=== PATIENT | female | born 1950 | race Caucasian/White ===

== ENCOUNTER → 2018-04-23 | Outpatient (CLI) | payer MEDICARE, OTHER ==
--- NOTE | 2018-04-24 14:07 | MM ---
Reason for exam: screening (asymptomatic). Last mammogram was performed 1 year and 2 months ago. History: Patient is postmenopausal and has history of breast cancer at age 55. Family history of breast cancer in mother at age 63. Malignant lumpectomy of the right breast, 2005. Radiation therapy of the right breast, 2005. Retro-pectoral silicone gel implants, 1996. Took estrogen for 6 months. Physical Findings: A clinical breast exam by your physician is recommended on an annual basis and results should be correlated with mammographic findings. MG 3D Screen Mammo Imp/Cad Bilateral CC, MLO, and ID view(s) were taken. Prior study comparison: March 07, 2017, mammogram. February 18, 2017, mammogram. The breast tissue is heterogeneously dense. This may lower the sensitivity of mammography. No suspicious abnormality. No significant changes when compared with prior studies. ASSESSMENT: Negative, BI-RAD 1 RECOMMENDATION: Routine screening mammogram of both breasts in 1 year.
== END | disposition home or self-care (01) ==
LOC: RADMAMWWP 16:22
PROVIDERS: ATTEND Family Medicine
DX: Z12.31 Encounter for screening mammogram for malignant neoplasm of breast (principal); Z80.3 Family history of malignant neoplasm of breast
CPT/HCPCS: 77063; 77067

== ENCOUNTER → 2019-05-07 | Outpatient (CLI) | payer MEDICARE ==
--- NOTE | 2019-05-08 15:03 | MM ---
Reason for exam: screening (asymptomatic). Last mammogram was performed 1 year ago. History: Patient is postmenopausal and has history of breast cancer at age 55. Family history of breast cancer in mother at age 63. Malignant lumpectomy of the right breast, 2005. Radiation therapy of the right breast, 2005. Retro-pectoral silicone gel implants, 1996. Took estrogen for 6 months. Physical Findings: A clinical breast exam by your physician is recommended on an annual basis and results should be correlated with mammographic findings. MG 3D Screen Mammo Imp/Cad Bilateral CC, MLO, and ID view(s) were taken. Prior study comparison: April 23, 2018, bilateral MG 3d screen mammo imp/cad. March 07, 2017, mammogram. The breast tissue is heterogeneously dense. This may lower the sensitivity of mammography. No suspicious abnormality. Bilateral retropectoral silicone implants. No significant changes when compared with prior studies. ASSESSMENT: Negative, BI-RAD 1 RECOMMENDATION: Routine screening mammogram of both breasts in 1 year.
== END | disposition home or self-care (01) ==
LOC: RADMAMWWP 15:21
PROVIDERS: ATTEND Family Medicine
DX: Z12.31 Encounter for screening mammogram for malignant neoplasm of breast (principal); Z80.3 Family history of malignant neoplasm of breast; Z98.82 Breast implant status
CPT/HCPCS: 77063; 77067

== ENCOUNTER → 2020-06-16 | Outpatient (CLI) | payer MEDICARE ==
--- NOTE | 2020-06-17 11:14 | MM ---
Reason for exam: screening (asymptomatic). Last mammogram was performed 1 year and 1 month ago. History: Patient is postmenopausal and has history of breast cancer at age 55. Family history of breast cancer in mother at age 63. Malignant lumpectomy of the right breast, 2005. Radiation therapy of the right breast, 2005. Retro-pectoral silicone gel implants, 1996. Took estrogen for 6 months. Physical Findings: A clinical breast exam by your physician is recommended on an annual basis and results should be correlated with mammographic findings. MG 3D Screen Mammo Imp/Cad Bilateral CC, MLO, and ID view(s) were taken. Prior study comparison: May 07, 2019, bilateral MG 3d screen mammo imp/cad. April 23, 2018, bilateral MG 3d screen mammo imp/cad. There are scattered fibroglandular densities. No significant changes when compared with prior studies. ASSESSMENT: Benign, BI-RAD 2 RECOMMENDATION: Routine screening mammogram of both breasts in 1 year.
== END | disposition home or self-care (01) ==
LOC: RADMAMWWP 14:54
PROVIDERS: ATTEND Family Medicine
DX: Z12.31 Encounter for screening mammogram for malignant neoplasm of breast (principal)
CPT/HCPCS: 77063; 77067

== ENCOUNTER → 2021-07-24 | Outpatient (CLI) | payer MEDICARE ==
--- NOTE | 2021-07-26 08:10 | MM ---
Reason for exam: screening (asymptomatic). Last mammogram was performed 1 year and 1 month ago. History: Patient is postmenopausal and has history of breast cancer at age 55. Family history of breast cancer in mother at age 63. Implant in the right breast, 2009. Malignant lumpectomy of the right breast, 2005. Radiation therapy of the right breast, 2005. Retro-pectoral silicone gel implants, 1996. Took estrogen for 6 months. Physical Findings: A clinical breast exam by your physician is recommended on an annual basis and results should be correlated with mammographic findings. MG Screening Mammo Implant/CAD Bilateral CC and MLO view(s) were taken. Prior study comparison: June 16, 2020, bilateral MG 3d screen mammo imp/cad. May 07, 2019, bilateral MG 3d screen mammo imp/cad. April 23, 2018, bilateral MG 3d screen mammo imp/cad. February 18, 2017, mammogram. There are scattered fibroglandular densities. Bilateral retropectoral silicone implants. Left axillary nodule seen back on 2016. Surgical clips right axilla. No significant changes when compared with prior studies. ASSESSMENT: Benign, BI-RAD 2 RECOMMENDATION: Routine screening mammogram of both breasts in 1 year.
== END | disposition home or self-care (01) ==
LOC: RADMAMWWP 16:00
PROVIDERS: ATTEND Family Medicine
DX: Z12.31 Encounter for screening mammogram for malignant neoplasm of breast (principal)
CPT/HCPCS: 77067

== ENCOUNTER → 2023-01-17 | Outpatient (CLI) | payer MEDICARE ==
--- NOTE | 2023-01-17 10:16 | USB ---
Reason for Exam: Follow-up at short interval from prior study. Patient History: Menarche at age 15. First Full-Term at age 20. Postmenopausal. Breast cancer, age 55. Estrogen for 6 months. 2005, Malignant Lumpectomy on the right side. 2005, Radiation Therapy on the right side. 1996, Implant(s). 2009, Implant on the right side. Mother had breast cancer, age 63. Technique: Method: Targeted. Prior Study Comparison: 05/07/2019 Bilateral Screening Mammogram, [facility]. 06/16/2020 Bilateral Screening Mammogram, [facility]. 07/24/2021 Bilateral Screening Mammogram, [facility]. Findings: The axilla of the left breast was scanned. Benign-appearing axillary lymph nodes are present. No thickened cortex is evident. No suspicious spiculated or lobular masses.. Overall Assessment: Benign, BI-RAD 2 Management: Screening Mammogram of both breasts. A clinical breast exam by your physician is recommended on an annual basis and results should be correlated with mammographic findings. This exam should not preclude additional follow-up of suspicious palpable abnormalities. Results were given to the patient verbally at the time of exam. Electronically signed and approved by: Ciro Noel D.O. Radiologis
== END | disposition home or self-care (01) ==
LOC: RADUSWWP 09:48
PROVIDERS: ATTEND Family Medicine
DX: R92.8 Other abnormal and inconclusive findings on diagnostic imaging of breast (principal); Z78.0 Asymptomatic menopausal state; Z80.3 Family history of malignant neoplasm of breast

== ENCOUNTER → 2023-01-23 | Outpatient (CLI) | payer MEDICARE ==
--- NOTE | 2023-01-23 19:31 | CTL ---
EXAMINATION TYPE: CT Low Dose Lung DATE OF EXAM: 01/23/2023 5:36 PM CLINICAL INDICATION:Female, 73 years old with history of Z87.891 PERSONAL HISTORY OF NICOTINE DEPENDE NCE; personal hx of tobacco use , history of tobacco use. COMPARISON: None. TECHNIQUE: Multiple axial non-contrast scans were obtained from approximately the lung apices through the upper abdomen. Coronal and sagittal reformatted images were obtained. Low dose technique was uti lized. CT DLP: 84.9 mGycm, Automated exposure control for dose reduction was used. CT Contrast: Contrast used: None Oral contrast used: None FINDINGS: ======== Lack of intravenous contrast and low dose technique limits the evaluation of the vascular and soft ti ssue structures. LUNGS: No evidence of pulmonary fibrosis. No evidence of focal consolidation, pneumothorax or pleural effusion. Nodules: RUL: None. RML: None. RLL: None. ABIGAIL: None. LLL: None. AIRWAY: Patent and unremarkable. HEART: Size within normal limits. Atherosclerosis of the coronary arteries. Aortic valve calcificatio ns. MEDIASTINUM: No gross evidence of adenopathy. VASCULATURE: No aortic aneurysm. MUSCULOSKELETAL: No acute osseous abnormalities, pectus excavatum. Multilevel disc degeneration herman es throughout the spine. SOFT TISSUES/LYMPH NODES: There is bilateral breast implants. The left breast implant appears to have an intracapsular rupture. Surgical clips in the right axilla. LOWER NECK: No significant findings. UPPER ABDOMEN: No significant findings. IMPRESSION: 1. No clinically significant pulmonary nodules. 2. There is bilateral breast implants. The left breast implant appears to have an intracapsular rupt ure. CT LUNG RAD AND CT CHEST RECOMMENDATION: Lung-Rad 1 Negative: Continue annual screening with LDCT in 12 months. S Modifier (other clinically significant findings): None Recommend smoking cessation (if current smoker), or continuation of smoking cessation (if prior smoke r). Annual screening for lung cancer with low-dose computed tomography is recommended in adults ages 55 to 77 years who have a 30 pack-year smoking history and currently smoke or have quit within the pa st 15 years. Screening should be discontinued once a person has not smoked for 15 years or develops a health problem that substantially limits life expectancy or the ability or willingness to have curat xi lung surgery. Lung rads 2021 [email or web address]
== END | disposition home or self-care (01) ==
LOC: RADCTMAIN 17:15
PROVIDERS: ATTEND Family Medicine
DX: Z12.2 Encounter for screening for malignant neoplasm of respiratory organs (principal); F17.210 Nicotine dependence, cigarettes, uncomplicated; Z98.82 Breast implant status
CPT/HCPCS: 71271

== ENCOUNTER → 2023-07-30 | Outpatient (CLI) | payer MEDICARE ==
--- NOTE | 2023-07-31 11:06 | CA ---
Lexiscan Nuclear Stress Test Report Name: Anisha Rascon Exam Date: 07/31/2023 09:30 Exam Location: [facility] Ht (in): 63 Wt (lb): 170 BSA: 1.80 Ordering Phys: Clayton Boles DO Referring Phys: Clayton Boles DO Technologist: Juan Woods Age: 73 Gender: F : 1950 Procedure CPT: Indications: R94.31 ABNORMAL ELECTROCARDIOGRAM [ECG] [EKG] ICD-10 Codes: Patient History: DIFFICULTY IN BREATHING, HTN, ELEVATED CHOLESTEROL LEVELS, FAMILY HX OF HEART DISEASE, FORMER SMOKER, COPD Medications: METOPROLOL, HZTZ, ATORVASTATIN, IBUPROFEN Meds past 24 hrs: Pretest Chest Pain: STRESS TEST Lexiscan Protocol Exercise Duration (min:sec): 01:[address] Depressions (mm): Angina Score: Brown Score: Resting HR (bpm): 59 Peak HR (bpm): 92 Resting BP (mmHg): 164 / 99 Peak BP (mmHg): 174 / 107 MPHR: 148 Target HR: 126 % MPHR: 62 METS: 1.0 Total Dose: Peak Dose: Atropine: Double Product: 94817 BP Response: Stress Termination: INFUSION COMPLETE Stress Symptoms: DIAPHORESIS Stress Summary: ECG ANALYSIS Resting ECG: Stress ECG: CONCLUSIONS RESTING EKG: Sinus rhythm, nonspecific T-wave inversions in inferior leads and T-wave flattening in lateral leads, Heart rate 60 BPM Patient recieved IV infusion of Lexiscan 0.4mg and at peak infusion STRESS EKG showed: Exacerbation of baseline T-wave inversions in inferior lead which is not particularly diagnostic for ischemia ARRYTHMIAS: [No ectopic rhythms or sustained arrythmias] CONCLUSION: 1. Normal hemodynamic and heart response to Lexiscan infusion. 2. Non-ischemic EKG response to lexiscan infusion 3. Nuclear perfusion imaging is reported separately by the radiology team. Please refer to that report for complete interpretation of this study. Dr Saúl Wheeler (Electronically Signed) Final Date: 31 July 2023 11:05
--- NOTE | 2023-07-31 23:10 | NM ---
EXAMINATION TYPE: NM stress lexiscan cardiolite DATE OF EXAM: 07/31/2023 COMPARISON: NONE HISTORY: Presurgical clearance TECHNIQUE: After the intravenous administration of 9.5 mCi Tc 99m Sestamibi - Cardiolite resting SPE CT images acquired 55 minutes post injection. At peak stress 25.5 mCi Tc 99m Sestamibi - Stress images obtained 40 minutes post injection The patient was stressed with 0.4mg Lexiscan. FINDINGS: There is a small defect along the lateral distal left ventricular wall extending towards cardiac apex on the stress images. This area appears more normal on the resting images. Polar maps suggest revers ible perfusion defect to this region. Additionally, Polar map suggest a stress-induced ischemic herman e along the distal septal wall not as clearly evident on the SPECT imaging. Ejection fraction of 50% is normal. Normal greater than 50%. Wall motion appears within normal limits IMPRESSION: 1. Stress-induced ischemic change which appears reversible on rest along the distal lateral left vent ricular wall. 2. Borderline hypoechoic kinesia with an ejection fraction of 50%.
== END | disposition home or self-care (01) ==
LOC: RADNMMAIN 08:16
PROVIDERS: ATTEND Family Medicine
DX: Z01.818 Encounter for other preprocedural examination (principal); R94.31 Abnormal electrocardiogram [ECG] [EKG]
CPT/HCPCS: 93017; 78452; A9500

== ENCOUNTER → 2023-09-03 | Outpatient (CLI) | payer MEDICARE ==
[2023-09-03 18:11] LABS: HCT 43.4 % (37.2-46.3); HGB 14.6 g/dL (12.0-15.0); MCH 31.3 pg (27.0-32.0); MCHC 33.6 g/dL (32.0-37.0); MCV 93.1 FL (80.0-97.0); Mean Platelet Volume 9.9 FL (9.5-12.2); NRBC Per 100 WBC 0 X 10*3/uL (0.00-0.01); Platelet Count 296 X 10*3/uL (140-440); RBC 4.66 X 10*6/uL (4.10-5.20); RDW 12.3 % (11.5-14.5)
[2023-09-03 18:18] LABS: Blood Urea Nitrogen 13.2 mg/dL (9.0-27.0); Carbon Dioxide 26.8 mmol/L (21.6-31.8); Chloride 98 mmol/L (96-109); Potassium 4.7 mmol/L (3.5-5.5); Sodium 137 mmol/L (135-145)
== END | disposition home or self-care (01) ==
LOC: LABPAT 14:05
PROVIDERS: ATTEND Student in an Organized Health Care Education/Training Program
DX: Z01.812 Encounter for preprocedural laboratory examination (principal); R94.39 Abnormal result of other cardiovascular function study
CPT/HCPCS: 80051; 82565; 84520; 85027

== ENCOUNTER 2023-09-10 10:14 | Day surgery (SDC) | payer MEDICARE ==
[2023-09-05 12:17] VITALS: BMI 31.8
[~2023-09-10 10:14] MED LIST: ALPRAZolam 0.25 MG TAB PO PRN; ALPRAZolam 0.5 MG TAB PO PRN; ASPIRIN 325 MG TAB PO STA; NITROGLYCERIN SL TABS 0.4 MG TAB SUBLINGUAL PRN; SODIUM CHLORIDE 0.9% 1,000 ML in EMPTY BAG 1 BAG IV SCH
[2023-09-10] MEDS ORDERED: SODIUM CHLORIDE 0.9% 1,000 ML IV ONE (10:21)
[2023-09-10 11:03] VITALS: RESP 16; TEMP 97.7
[2023-09-10] MEDS ORDERED: VERAPAMIL 2.5 MG/ML 2 ML AMP ONE (12:30)
[2023-09-10] MEDS ORDERED: HEPARIN SODIUM 1,000 UN/ML (10ML VL) ONE (12:42)
[2023-09-10] MEDS ORDERED: fentaNYL (PF) 50 MCG/ML 2 ML AMP ONE (12:42)
[2023-09-10] MEDS ORDERED: MIDAZOLAM 2 MG/2 ML VIAL IVP ONE (12:50)
[2023-09-10] MEDS ORDERED: fentaNYL (PF) 50 MCG/ML 2 ML AMP IVP ONE (12:50)
[2023-09-10] MEDS ORDERED: LIDOCAINE 1% INJ 10MG/ML (20 ML MDV) SQ ONE (12:51)
[2023-09-10] MEDS ORDERED: VERAPAMIL 2.5 MG/ML 2 ML AMP INTRAARTER ONE (12:53)
[2023-09-10] MEDS ORDERED: HEPARIN SODIUM 1,000 UN/ML (10ML VL) IV ONE (13:06)
[2023-09-10] MEDS ORDERED: IOPAMIDOL-370 100ML BTL INJ ONE (13:18)
[2023-09-10] MEDS ORDERED: RX INFO: IV CONTRAST WAS GIVEN 1 EACH MISC MISCELLANE PRN (13:23)
[2023-09-10] MEDS ORDERED: SODIUM CHLORIDE 0.9% 1,000 ML IV SCH (13:30)
--- NOTE | 2023-09-10 13:31 | P.CARDCATH ---
Date of Procedure: 09/10/23 Description of Procedure: DIAGNOSTIC CORONARY ANGIOGRAPHY and LEFT HEART CATH REPORT PROCEDURES PERFORMED: Left heart catheterization Selective coronary angiography Moderate conscious sedation [25] mins Ultrasound assisted Right ulnar access INDICATION: Positive nuclear stress test 73-year-old female who saw me in the clinic because of worsening exercise tolerance and exertional shortness of breath. She underwent a Lexiscan nuclear stress test which showed reversible perfusion defect of dskh-xo-mkoxwasy intensity and mild to moderate size involving the anterolateral wall. For this she was scheduled for an outpatient heart catheterization. CONSENT: I have discussed the risks, benefits and alternative therapies for the above-mentioned procedure, sedation/analgesia and necessary blood product administration (if indicated, as they pertain to this patient). The patient has indicated understanding and acceptance of the risks and procedures discussed. Conscious Sedation: Patient's ECG, heart rate, blood pressure, pulse oximetry was monitored throughout the duration of procedure under my direct supervision. [1] mg Versed and [50] mg Fentanyl were used for induction of moderate conscious sedation. Total duration of moderate concious sedation [25] minutes. PROCEDURE: After explaining the risks, benefits and alternatives of the above mentioned procedures in detail to the patient, informed consent was obtained. Patient was taken to the catheterization lab, prepped and draped in usual sterile fashion using universal precuations. Barbow and ridge test were performed to confirm adequate perfusion to fingers. Ultrasound was used to identify the radial artery. Right radial artery was very small on ultrasound exam measuring around 2 mm. Therefore we decided to not proceed with right radial access. On ultrasound of her right ulnar artery was big. Ultrasound was used to localize the right ulnar artery. 1% lidocaine was infiltrated over the right radial artery. A 6-Moroccan sheath was placed and secured in the right ulnar artery using modified Seldinger technique. The sheath was flushed and 5 mg verapamil was administered intra- arterially. J tipped wire was advanced under fluoroscopic guidance. Once the wire tip reached aortic root 4800 units of IV heparin was given. Over the wire 5 Moroccan JL4 diagnostic catheter was advanced. Wire was removed, catheter was flushed and manipulated under fluoroscopy to selectively engaged the left coronary ostium. Left coronary angioplasty was performed in different angiographic projections. This catheter was exchanged for a 5 Moroccan JR4 diagnostic catheter over the wire. The catheter was flushed and manipulated to cross the aortic valve. LV pressures were obtained. Pullback was performed across aortic valve and catheter was manipulated to selectively engage the right coronary ostium under fluoroscopic guidance. Right coronary angiography was performed in different angiographic projections. Catheter was removed over the wire. Radial sheath was flushed. The right radial sheath was removed and a TR band was placed with excellent patent hemostasis was achieved. The patient tolerated the procedure well. Patient was transported back to the post catheterization holding area in stable condition. Angiographic images were reviewed in detail. HEMODYNAMICS: Aortic Pressure: 160/82 mmHg. LV pressure: 162/10 mmHg. LVEDP 15 mmHg. SELECTIVE CORONARY ARTERIOGRAPHY: LEFT MAIN: The left main is a large caliber vessel which trifurcates into the LAD, ramus and circumflex. Left main appears angiographically normal. LEFT ANTERIOR DESCENDING CORONARY ARTERY: LAD is a large caliber vessel which wraps around to the apex. Proximal mid and distal LAD appears angiographically normal. It gives rise to a large diagonal branch which bifurcates very early. The right nervous system appears angiographically normal. Tortuous RAMUS: Small vessels appears angiographically normal. LEFT CIRCUMFLEX CORONARY ARTERY: It is nondominant vessel. Left circumflex is a moderate caliber vessel. It is very tortuous and appears angiographically normal. It does not appear to give any major OM branches. RIGHT CORONARY ARTERY: Dominant vessel. The right coronary artery is a large caliber vessel which gives PDA and PLV branch. It appears angiographically normal. It gives large RV branches which appears angiographically normal IMPRESSION: Angiographically normal coronary arteries as described above. Normal left sided filling pressures Small right radial, big right ulnar Tortuous coronary artery Elevated blood pressure PLAN: Aggressive risk factor modification per most recent ACC/AHA guidelines. 150 cc fluids for 3 hours Discharge home in 3 hours Follow-up in the office in 1-2 weeks. Performing Physician Saúl Wheeler MD
[2023-09-10] MEDS ORDERED: amLODIPine 5 MG TAB PO STA (13:37)
[2023-09-10] MEDS ORDERED: amLODIPine 2.5 MG TAB PO STA (13:39)
[2023-09-10] MEDS ORDERED: amLODIPine 5 MG TAB ONE (13:42)
[2023-09-10] MEDS ORDERED: SODIUM CHLORIDE 0.9% 500 ML 500 ML IV ONE (15:15)
[2023-09-10 16:57] VITALS: BP 155/78; PULSE 55
== END 2023-09-10 16:25 | disposition home or self-care (01) ==
LOC: CATHCVL 10:14
PROVIDERS: ATTEND Student in an Organized Health Care Education/Training Program
DX: R94.39 Abnormal result of other cardiovascular function study (principal); I10 Essential (primary) hypertension; E78.5 Hyperlipidemia, unspecified; F12.90 Cannabis use, unspecified, uncomplicated; Z79.82 Long term (current) use of aspirin; Z79.899 Other long term (current) drug therapy
CPT/HCPCS: 93458; C1769 ×2; C1894; J2250; J2001; J3010; J1644; Q9967

== ENCOUNTER → 2023-09-23 | Outpatient (CLI) | payer MEDICARE ==
--- NOTE | 2023-09-23 14:54 | US ---
EXAMINATION TYPE: US upper ext pseudo RT DATE OF EXAM: 09/23/2023 COMPARISON: NONE CLINICAL INDICATION: Female, 73 years old with history of N83.7 Right forearm; Hematoma; Pt states he art cath with right ulnar artery approach having bruising to right arm TECHNIQUE: Right ulnar artery FINDINGS: No evidence of pseudoartery within right ulnar artery at puncture site IMPRESSION: 1. No suspicious pseudoaneurysm evident.
--- NOTE | 2023-09-23 15:30 | US ---
EXAMINATION TYPE: US arterial UE single level DATE OF EXAM: 09/23/2023 9:29 AM CLINICAL INDICATION: Female, 73 years old with history of N83.7 RIGHT FOREARM HEMATOMA; Pt states hea rt cath 1 week ago with ulnar artery approach History of: Smoker: Prior, quit recently Hypertension: Yes Diabetic: No Hyperlipidemia: Yes TIA/CVA: No Previous Vascular Surgery: No CAD: No MO: No Doppler Waveforms: Right: Axillary: Biphasic Brachial: Biphasic Radial: Biphasic Ulnar: Monophasic Wrist Brachial Indices: Right: 1.1 Right TBI- 1.0 Left TBI obtained for comparison- 1.0 IMPRESSION: No significant flow-limiting stenosis right upper extremity.
== END | disposition home or self-care (01) ==
LOC: RADUSWWP 08:47
PROVIDERS: ATTEND Student in an Organized Health Care Education/Training Program
DX: S40.021A Contusion of right upper arm, initial encounter (principal); N83.7 Hematoma of broad ligament; I10 Essential (primary) hypertension; E78.5 Hyperlipidemia, unspecified; Z87.891 Personal history of nicotine dependence
CPT/HCPCS: 93922

== ENCOUNTER → 2024-01-27 | Outpatient (CLI) | payer MEDICARE ==
--- NOTE | 2024-01-27 19:47 | CTL ---
EXAMINATION TYPE: CT Low Dose Lung DATE OF EXAM ORDERED: 01/27/2024 HISTORY: Lung cancer screening CT DLP: 95.[address] CTDI: 2.4 mGy Automated exposure control for dose reduction was used. COMPARISON: 01/23/2023 TECHNIQUE: Low dose computed tomography scan was performed through the chest at 1 mm thick sections a nd reconstructed images in multiple planes at 1 mm and 5 mm thick sections. FINDINGS: There is no suspicious lung mass or nodule The lungs are clear and there is no abnormal consolidation or interstitial density. There is no mediastinal, hilar or axillary adenopathy. There is no pleural effusion, pleural thickening or pneumothorax. No focal osseous lesions are seen. Limited scans the upper abdomen reveals no gross adenopathy. Incidental note is made of bilateral breast implants. IMPRESSION: 1. BI-RADS Category 1 negative. Continue routine screening at yearly intervals. 2. No acute cardiopulmonary disease.
== END | disposition home or self-care (01) ==
LOC: RADCTMAIN 16:31
PROVIDERS: ATTEND Family Medicine
DX: Z12.2 Encounter for screening for malignant neoplasm of respiratory organs (principal); F17.210 Nicotine dependence, cigarettes, uncomplicated
CPT/HCPCS: 71271

== ENCOUNTER → 2024-02-28 | Outpatient (CLI) | payer MEDICARE ==
--- NOTE | 2024-02-28 15:48 | XR ---
EXAMINATION TYPE: XR chest 2V DATE OF EXAM: 02/28/2024 COMPARISON: None INDICATION: Presurgical evaluation TECHNIQUE: Frontal and lateral views of the chest are obtained. FINDINGS: The heart size is upper limits of normal. The pulmonary vasculature is normal. The lungs are clear. IMPRESSION: 1. No acute pulmonary process.
== END | disposition home or self-care (01) ==
LOC: RADXRMAIN 13:29
PROVIDERS: ATTEND Family Medicine
DX: R09.89 Other specified symptoms and signs involving the circulatory and respiratory systems (principal)
CPT/HCPCS: 71046

== ENCOUNTER → 2025-04-21 | Outpatient (CLI) | payer MEDICARE ==
--- NOTE | 2025-04-21 16:50 | CTL ---
EXAMINATION TYPE: CT Low Dose Lung DATE OF EXAM: 04/21/2025 3:42 PM COMPARISON: 01/27/2024. CLINICAL INDICATION: Female, 75 years old with history of Z12.2, Z87.891; F/u lung screening for chidi logan dependence of 1ppd x35 years, current smoker, hx of copd, history of tobacco use. TECHNIQUE: Multiple axial non-contrast scans were obtained from approximately the lung apices through the upper abdomen. Coronal and sagittal reformatted images were obtained. Low dose technique was uti lized. MIP were created on a separate workstation and submitted for review. CT DLP: 91.2 mGycm, Automated exposure control for dose reduction was used. CT Contrast: Contrast used: None Oral contrast used: None FINDINGS: Lack of intravenous contrast and low dose technique limits the evaluation of the vascular and soft ti ssue structures. LUNGS: No evidence of pulmonary fibrosis. No evidence of focal consolidation, pneumothorax or pleural effusion. Centrilobular emphysema changes. Nodules: RUL: None. RML: None. RLL: None. ABIGAIL: None. LLL: None. AIRWAY: Patent and unremarkable. HEART: Size within normal limits. Aortic valve calcifications. No significant coronary artery calcifi cations. MEDIASTINUM: No gross evidence of adenopathy. VASCULATURE: No aortic aneurysm. MUSCULOSKELETAL: Moderate disc degeneration changes are present throughout the thoracolumbar spine. R ight axillary surgical clips. SOFT TISSUES/LYMPH NODES: Unremarkable. LOWER NECK: No significant findings. UPPER ABDOMEN: No significant findings. IMPRESSION: 1. No clinically significant pulmonary nodules. 2. Mild emphysema. CT LUNG RAD AND CT CHEST RECOMMENDATION: Lung-Rad 1 Negative: Continue annual screening with LDCT in 12 months. S Modifier (other clinically significant findings): None Recommend smoking cessation (if current smoker), or continuation of smoking cessation (if prior smoke r). Annual screening for lung cancer with low-dose computed tomography is recommended in adults ages 55 to 77 years who have a 30 pack-year smoking history and currently smoke or have quit within the pa st 15 years. Screening should be discontinued once a person has not smoked for 15 years or develops a health problem that substantially limits life expectancy or the ability or willingness to have curat xi lung surgery. Lung rads 2021 [email or web address] [facility], , 04/21/2025 4:48 PM
== END | disposition home or self-care (01) ==
LOC: RADCTMAIN 15:16
PROVIDERS: ATTEND Family Medicine
DX: Z12.2 Encounter for screening for malignant neoplasm of respiratory organs (principal); J43.2 Centrilobular emphysema; Z87.891 Personal history of nicotine dependence
CPT/HCPCS: 71271